=== PATIENT | female | born 2005 | race Hispanic/Latino ===

== ENCOUNTER → 2025-02-03 | Outpatient (CLI) | payer OTHER ==
--- NOTE | 2025-01-07 13:57 | NUR ---
BARIATRIC FOLLOW UP NOTE VISIT 4 OF 6 Wt: 272 LBS DOS: 01/07/25 Upon follow up visit, pt presents with a 2 wt gain. Pt reported she has a new PCP, is on a vit. D prescription, continues taking MVI QD, no carbonation, has been consuming sugar free products, still does not know procedure, water training, has been drinking sugar free products, was sick with COVID earlier this month. Pt chewing gum during visit. RD conducted 24 hr food recall. Breakfast: skipped Lunch: teriyaki Dinner: egg + juárez S: strawberries RD reviewed simple CHO and complex CHO intake, encouraged pt to decrease soft drink (even sugar free) consumption secondary to carbonation and caffeine, pt verbalized understanding. RD and pt established goals for next month: -MVI QD -walking 4x per week for 30 mins -no skipping meals Thank you for this visit Addendum: 01/07/25 at [address] Amended: Links added.
--- NOTE | 2025-02-03 12:56 | NUR ---
BARIATRIC FOLLOW UP NOTE VISIT 5 OF 6 Wt: 272 LBS DOS: 02/03/25 Upon follow up visit, pt presents with no wt change. Pt reported she is still on vit. D prescription, MVI QD, planning on getting sleeve, has not been exercising due to family situation, does not work, plans to go back to work for after the procedure, water training, has been trying SF products, every now and then drinks premier shakes. RD conducted 24 hr food recall. Breakfast: chorizo + egg + SF lemonade + avocado Lunch: chic-juliet sandwich + fries+ water Dinner: skipped RD reviewed protein requirements, importance of vit. D and protein intake, encouraged Pt to exercise, encouraged pt to decrease soft drink (even sugar free) consumption secondary to carbonation and caffeine, pt verbalized understanding. RD and pt established goals for next month: -no skipping meals -increase color in meals -walking 10 mins 2x per day Thank you for this visit Addendum: 02/03/25 at [address] Amended: Links added.
== END | disposition home or self-care (01) ==
LOC: DTH 01-07 12:19
PROVIDERS: ATTEND Surgery
DX: E66.01 Morbid (severe) obesity due to excess calories (principal); M19.91 Primary osteoarthritis, unspecified site; Z71.3 Dietary counseling and surveillance; K21.9 Gastro-esophageal reflux disease without esophagitis; G47.33 Obstructive sleep apnea (adult) (pediatric); E66.3 Overweight
CPT/HCPCS: 97803